=== PATIENT | male | born 1990 | race Two or more races ===

== ENCOUNTER 2018-03-22 17:29 | Emergency (ER) | payer MEDICAID ==
[~2018-03-22] VITALS: Ht 170.2 cm; Wt 59.0 kg
[2018-03-22 17:41] VITALS: BP 132/82
== END 2018-03-22 22:24 | disposition left against medical advice (07) ==
LOC: ER 17:29
DX: R10.9 Unspecified abdominal pain (principal); Z53.21 Procedure and treatment not carried out due to patient leaving prior to being seen by health care provider